=== PATIENT | male | born 1985 | race Caucasian/White ===

== ENCOUNTER 2017-02-21 13:06 | Emergency (ER) | payer OTHER ==
[2017-02-21] MEDS ORDERED: DIAZEPAM INJ 10 MG/2 ML DISP.SYRIN IV ONE (13:27)
[2017-02-21] MEDS ORDERED: HYDROMORPHONE HCL INJ/PF 2 MG/ML AMPULE IV ONE (13:33)
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
[2017-02-21] MEDS ORDERED: PROPOFOL INJ 200 MG/20 ML VIAL IV ONE (14:38)
[2017-02-21] MEDS ORDERED: CLONAZEPAM 1 MG TABLET PO ONE (15:48)
[2017-02-21 16:05] VITALS: BP 124/84
== END 2017-02-21 16:05 | disposition home or self-care (01) ==
LOC: ER 13:06
PROC: 2W39X1Z Immobilization of Left Upper Extremity using Splint (ICD-10-PCS; principal; 2017-02-21)
DX: S43.015A Anterior dislocation of left humerus, initial encounter (principal); R56.9 Unspecified convulsions; M25.512 Pain in left shoulder; X58.XXXA Exposure to other specified factors, initial encounter; F17.210 Nicotine dependence, cigarettes, uncomplicated
CPT/HCPCS: 99284; 96374; 96375; 73020; 73030; 70450; 29105; L3650; J3360; J1170; J2704

== ENCOUNTER 2017-04-24 15:03 | Emergency (ER) | payer OTHER ==
--- NOTE | 2017-04-24 16:24 | ER Document Report ---
ED Psych Disorder / Suicide - General Chief Complaint: Suicidal Ideation Stated Complaint: PSYCH EVAL/SUICIDAL IDEATION Time Seen by Provider: 04/24/17 16:06 Mode of Arrival: Ambulatory Information source: Patient TRAVEL OUTSIDE OF THE [place] IN LAST 30 DAYS: No - HPI Patient complains to provider of: Aggression, Agitated, Homicidal ideation - Related Data Allergies/Adverse Reactions: No Known Allergies Allergy (Verified 04/24/17 15:16) Past Medical History - Social History Family History: Reviewed & Not Pertinent Patient has suicidal ideation: Yes Patient has homicidal ideation: Yes Renal/ Medical History: Denies: Hx Peritoneal Dialysis Physical Exam - Vital signs Vitals: Temp Pulse Resp BP Pulse Ox 97.8 F 92 16 107/64 96 04/24/17 15:16 04/24/17 15:16 04/24/17 15:16 04/24/17 15:16 04/24/17 15:16 Course - Vital Signs Vital signs: Temp Pulse Resp BP Pulse Ox 97.8 F 92 16 107/64 96 04/24/17 15:16 04/24/17 15:16 04/24/17 15:16 04/24/17 15:16 04/24/17 15:16 - Laboratory Result Diagrams: 04/24/17 16:49 04/24/17 16:49 Laboratory results interpreted by me: 04/24/17 04/24/17 16:49 16:49 Hgb 17.8 H Hct 54.2 H MCV 98 H RDW 14.8 H BUN 4 L Salicylates < 1.0 L Acetaminophen < 10 L
[2017-04-24 17:02] LABS: ABSOLUTE BASOPHILS # (AUTO) 0.1 10^3/uL (0.0-0.2); ABSOLUTE EOSINOPHILS # (AUTO) 0.1 10^3/uL (0.0-0.6); ABSOLUTE LYMPHOCYTES (AUTO) 2.1 10^3/uL (0.5-4.7); ABSOLUTE MONOCYTES (AUTO) 0.4 10^3/uL (0.1-1.4); ABSOLUTE NEUT (AUTO) 6.9 10^3/uL (1.7-8.2); BASOPHILS % (AUTO) 0.8 % (0-2); EOSINOPHILS % (AUTO) 1.1 % (0-6); HEMATOCRIT 54.2 % (37.9-51.0); HEMOGLOBIN 17.8 g/dL (13.5-17.0); HGB HCT DIFFERENCE -0.8; LYMPHOCYTES % (AUTO) 22.3 % (13-45); MEAN CORPUSCULAR HGB CONC 32.7 g/dL (32.0-36.0); MEAN CORPUSCULAR VOLUME 98 fl (80-97); MONOCYTES % (AUTO) 4.3 % (3-13); RED BLOOD COUNT 5.54 10^6/uL (4.35-5.55); RED CELL DISTRIBUTION WIDTH 14.8 % (11.5-14.0); SEGMENTED NEUTROPHILS % (AUTO) 71.5 % (42-78); WHITE BLOOD COUNT 9.6 10^3/uL (4.0-10.5)
[2017-04-24 17:06] LABS: APPEARANCE,URINE CLEAR; BILIRUBIN,URINE NEGATIVE (NEGATIVE); GLUCOSE, URINE NEGATIVE (NEGATIVE); KETONES,URINE NEGATIVE (NEGATIVE); LEUKOCYTE ESTERASE,URINE NEGATIVE (NEGATIVE); NITRITE,URINE NEGATIVE (NEGATIVE); PROTEIN,URINE NEGATIVE (NEGATIVE); URINE SPECIFIC GRAVITY 1.002; UROBILINOGEN,URINE NEGATIVE mg/dL (<2.0)
[2017-04-24] MEDS ORDERED: ONDANSETRON HCL INJ/PF 4 MG/2 ML SDV IV ONE (17:17)
[2017-04-24] MEDS ORDERED: KETOROLAC TROMETHAMINE INJ/PF 30 MG/1 ML SDV IV ONE (17:17)
[2017-04-24] MEDS ORDERED: DIPHENHYDRAMINE HCL 50 MG/ML VIAL IV ONE (17:17)
--- NOTE | 2017-04-24 17:17 | ER Document Report ---
ED Psych Disorder / Suicide - General Mode of Arrival: Ambulatory Information source: Patient TRAVEL OUTSIDE OF THE [place].S[place] IN LAST 30 DAYS: No - HPI Patient complains to provider of: Homicidal ideation Associated symptoms: Other - See above <MYRA MEYERS - Last Filed: 04/24/17 17:24> <MAHNAZ DAN - Last Filed: 04/24/17 19:24> - General Chief Complaint: Homicidal Ideation Stated Complaint: PSYCH EVAL/homicidal IDEATION Time Seen by Provider: 04/24/17 16:06 Notes: Patient is a 31 year old male, with a past medical history including PTSD, who presents to the emergency department with [facility] unit for homicidal ideation. Per mobile crisis patient has both suicidal and homicidal ideation. Patient complains of pain everywhere and a constant headache. Patient reports he is waiting for transfer to the [place] for his mental health. (MYRA MEYERS) - Related Data Allergies/Adverse Reactions: No Known Allergies Allergy (Verified 04/24/17 15:16) Past Medical History - General Information source: Patient - Social History Smoking Status: Current Every Day Smoker Chew tobacco use (# tins/day): No Frequency of alcohol use: Heavy Drug Abuse: None Family History: Reviewed & Not Pertinent Patient has suicidal ideation: Yes Patient has homicidal ideation: Yes Neurological Medical History: Reports: Hx Migraine - TBI, Psychiatric Medical History: Reports: Hx Post Traumatic Stress Disorder Traumatic Medical History: Reports: Hx Traumatic Brain Injury <MYRA MEYERS - Last Filed: 04/24/17 17:24> Review of Systems - Review of Systems Constitutional: See HPI, Other - pain everywhere EENT: No symptoms reported Cardiovascular: No symptoms reported Respiratory: No symptoms reported Gastrointestinal: No symptoms reported Genitourinary: No symptoms reported Male Genitourinary: No symptoms reported Musculoskeletal: No symptoms reported Skin: No symptoms reported Hematologic/Lymphatic: No symptoms reported Neurological/Psychological: See HPI, Headaches -: Yes All other systems reviewed and negative <MYRA MEYERS - Last Filed: 04/24/17 17:24> Physical Exam - Vital signs Interpretation: Normal - General General appearance: Appears well, Alert - HEENT Head: Normocephalic, Atraumatic Eyes: Normal, Other - Sunglasses on in room Pupils: PERRL - Respiratory Respiratory status: No respiratory distress Chest status: Nontender Breath sounds: Normal Chest palpation: Normal - Cardiovascular Rhythm: Regular Heart sounds: Normal auscultation Murmur: No - Abdominal Inspection: Normal Distension: No distension Bowel sounds: Normal Tenderness: Nontender Organomegaly: No organomegaly - Back Back: Normal, Nontender - Extremities General upper extremity: Normal inspection, Nontender, Normal color, Normal ROM , Normal temperature General lower extremity: Normal inspection, Nontender, Normal color, Normal ROM , Normal temperature, Normal weight bearing. No: Pierce's sign - Neurological Neuro grossly intact: Yes Cognition: Normal Orientation: AAOx4 Avilla Coma Scale Eye Opening: Spontaneous Ramón Coma Scale Verbal: Oriented Avilla Coma Scale Motor: Obeys Commands Avilla Coma Scale Total: 15 Speech: Normal Motor strength normal: LUE, RUE, LLE, RLE Sensory: Normal - Psychological Associated symptoms: Flat affect - Skin Skin Temperature: Warm Skin Moisture: Dry Skin Color: Normal <MAHNAZ DAN - Last Filed: 04/24/17 19:24> - Vital signs Vitals: Temp Pulse Resp BP Pulse Ox 97.8 F 92 16 107/64 96 04/24/17 15:16 04/24/17 15:16 04/24/17 15:16 04/24/17 15:16 04/24/17 15:16 Course - Laboratory Result Diagrams: 04/24/17 16:49 04/24/17 16:49 <MYRA MEYERS - Last Filed: 04/24/17 17:24> - Laboratory Result Diagrams: 04/24/17 16:49 04/24/17 16:49 <MAHNAZ DAN - Last Filed: 04/24/17 19:24> - Re-evaluation Re-evalutation: 04/24/17 17:22 Patient is a 31-year-old male who comes in complaining of suicidal and homicidal ideation. His body hurts all over, particularly his head. Patient states that he usually takes ibuprofen for headache. States that that has not been working recently. Headache medications will be ordered for this patient. He is also requesting something to eat. 04/24/17 19:22 Patient has a valproic acid level ordered as he is supposed to be taking it for his mental health disorder. Valproic acid level is nonexistent. Patient has had Depakote ordered. Discussed with mental health. He will also be started on Cogentin and Zyprexa. Headache is improved at this time. Patient will be kept on involuntary commitment paperwork and will be reevaluated by mental health in the morning. (MAHNAZ DAN) - Vital Signs Vital signs: Temp Pulse Resp BP Pulse Ox 97.8 F 92 16 107/64 96 04/24/17 15:16 04/24/17 15:16 04/24/17 15:16 04/24/17 15:16 04/24/17 15:16 - Laboratory Laboratory results interpreted by me: 04/24/17 04/24/17 04/24/17 16:49 16:49 16:49 Hgb 17.8 H Hct 54.2 H MCV 98 H RDW 14.8 H BUN 4 L Salicylates < 1.0 L Acetaminophen < 10 L Valproic Acid < 10.0 L Discharge <MYRA MEYERS - Last Filed: 04/24/17 17:24> <MAHNAZ DNA - Last Filed: 04/24/17 19:24> - Discharge Clinical Impression: Suicidal ideation, Homicidal ideation Headache Qualifiers: Headache type: unspecified Headache chronicity pattern: unspecified pattern Intractability: not intractable Qualified Code(s): R51 - Headache Condition: Stable Disposition: PSYCH HOSP/UNIT Scribe Attestation: 04/24/17 19:24 I personally performed the services described in the documentation, reviewed and edited the documentation which was dictated to the scribe in my presence, and it accurately records my words and actions. (MAHNAZ DAN) Scribe Documentation - Scribe Written by Gregorio:: gregorio Aguilar, 04/24/17, 1727 acting as scribe for :: Marleei <MYRA MEYERS - Last Filed: 04/24/17 17:24>
[2017-04-24 17:21] LABS: URINE BARBITURATES SCREEN NEGATIVE; URINE METHADONE SCREEN NEGATIVE; URINE OPIATES LOW NEGATIVE; URINE PHENCYCLIDINE SCREEN NEGATIVE
[2017-04-24 17:24] LABS: ALANINE AMINOTRANSFERASE 27 U/L (21-72); ALBUMIN 4.8 g/dL (3.5-5.0); ALCOHOL 95 mg/dL (NONE DETECTED); ALKALINE PHOSPHATASE 100 U/L (38-126); ANION GAP 15 (5-19); ASPARTATE AMINO TRANSFERASE 17 U/L (17-59); BILIRUBIN,DIRECT 0.3 mg/dL (0.0-0.4); BILIRUBIN,TOTAL 0.6 mg/dL (0.2-1.3); BLOOD UREA NITROGEN 4 mg/dL (7-20); CALCIUM 9.4 mg/dL (8.4-10.2); CARBON DIOXIDE 23 mmol/L (22-30); CHLORIDE 105 mmol/L (98-107); CREATININE RESULT 0.85 mg/dL (0.52-1.25); GLUCOSE 92 mg/dL (75-110); POTASSIUM 4.4 mmol/L (3.6-5.0); SODIUM 142.8 mmol/L (137-145); TOTAL PROTEIN 7.9 g/dL (6.3-8.2)
--- NOTE | 2017-04-24 17:54 | EKG REPORT ---
SEVERITY:- NORMAL ECG - SINUS RHYTHM : Confirmed by: Gabby Meadows 24-Apr-2017 17:53:43
[2017-04-24] MEDS ORDERED: OLANZAPINE 5 MG TAB.RAPDIS PO SCH (18:30)
[2017-04-24] MEDS ORDERED: OLANZAPINE 5 MG TAB.RAPDIS PO PRN (18:30)
[2017-04-24] MEDS ORDERED: KETOROLAC TROMETHAMINE 60 MG/2 ML SDV IM ONE (18:42)
[2017-04-24] MEDS ORDERED: ONDANSETRON 4 MG TAB.RAPDIS SL ONE (18:42)
[2017-04-24] MEDS ORDERED: DIPHENHYDRAMINE HCL 50 MG/ML VIAL IM ONE (18:42)
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
[2017-04-24] MEDS ORDERED: DIVALPROEX SODIUM 500 MG TAB.SR.24H PO SCH (19:00)
[2017-04-24] MEDS: NICOTINE 21 MG/24 HR PATCH.TD24 TD SCH (19:31)
[2017-04-24] MEDS ORDERED: DIVALPROEX SODIUM 500 MG TAB.SR.24H PO ONE ×2 (21:00)
[2017-04-24] MEDS ORDERED: OLANZAPINE 5 MG TAB.RAPDIS PO ONE (21:15)
[2017-04-24] MEDS: DIVALPROEX SODIUM 500 MG TAB.SR.24H PO SCH (21:24)
[2017-04-24] MEDS: BENZTROPINE MESYLATE 1 MG TABLET PO SCH (21:25)
[2017-04-25] MEDS ORDERED: DIPHENHYDRAMINE HCL 50 MG/ML VIAL IM ONE (06:21)
[2017-04-25] MEDS ORDERED: HALOPERIDOL LACTATE INJ 5 MG/1 ML VIAL IM ONE (06:21)
[2017-04-25] MEDS: OLANZAPINE 5 MG TAB.RAPDIS PO SCH ×2 (10:33→18:48)
--- NOTE | 2017-04-25 10:52 | ER Document Report ---
Doctor's Note Notes: 04/25/17 10:51 Patient awake and alert, ambulating in the room after having just brushed his teeth, he is pleasant and cooperative at this point in time states that he came to this emergency room in an effort to see a psychologist in person to have an opportunity to talk about his issues, he does not wish to engage in this conversation with myself or the social science professor here today, chart was otherwise worse reviewed, he does have a mildly elevated AST and ALT, otherwise vital signs and labs are stable, patient will remain in the emergency room until other placement arrangements can be made with the mental health team for appropriate disposition
[2017-04-25] MEDS: DIVALPROEX SODIUM 500 MG TAB.SR.24H PO SCH (18:48)
[2017-04-25] MEDS: BENZTROPINE MESYLATE 1 MG TABLET PO SCH (23:00)
[2017-04-25] MEDS: IBUPROFEN 600 MG TABLET PO PRN (23:04)
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
[2017-04-26] MEDS: OLANZAPINE 5 MG TAB.RAPDIS PO SCH ×2 (09:20→17:11)
[2017-04-26] MEDS: IBUPROFEN 600 MG TABLET PO PRN ×2 (09:20→18:34)
[2017-04-26] MEDS: DIVALPROEX SODIUM 500 MG TAB.SR.24H PO SCH ×2 (09:21→17:11)
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
--- NOTE | 2017-04-26 17:16 | RADIOLOGY REPORT (SQ) ---
EXAM DESCRIPTION: CHEST PA/LAT COMPLETED DATE/TIME: 04/26/2017 4:54 pm REASON FOR STUDY: pain COMPARISON: None. EXAM PARAMETERS: NUMBER OF VIEWS: two views TECHNIQUE: Digital Frontal and Lateral radiographic views of the chest acquired. RADIATION DOSE: NA LIMITATIONS: none FINDINGS: LUNGS AND PLEURA: No opacities, masses or pneumothorax. No pleural effusion. MEDIASTINUM AND HILAR STRUCTURES: No masses or contour abnormalities. HEART AND VASCULAR STRUCTURES: Heart normal size. No evidence for failure. BONES: No acute findings. HARDWARE: None in the chest. OTHER: No other significant finding. IMPRESSION: NO SIGNIFICANT RADIOGRAPHIC FINDING IN THE CHEST. TECHNICAL DOCUMENTATION: JOB ID: [id number] [employer]- All Rights Reserved
--- NOTE | 2017-04-26 17:17 | RADIOLOGY REPORT (SQ) ---
EXAM DESCRIPTION: SHOULDER LEFT 2 OR MORE VIEWS COMPLETED DATE/TIME: 04/26/2017 4:54 pm REASON FOR STUDY: pain COMPARISON: 02/21/2017 NUMBER OF VIEWS: Three views. TECHNIQUE: Internal rotation, external rotation, and Y view images acquired of the left shoulder. LIMITATIONS: None FINDINGS: MINERALIZATION: Normal. BONES: No acute fracture or dislocation. No worrisome bone lesions. JOINTS: No dislocation. VISUALIZED LUNGS AND RIBS: No pneumothorax. No rib fracture. SOFT TISSUES: No radiopaque foreign body. OTHER: No other significant finding. IMPRESSION: NEGATIVE STUDY OF THE LEFT SHOULDER. NO RADIOGRAPHIC EVIDENCE OF ACUTE INJURY. TECHNICAL DOCUMENTATION: JOB ID: [id number] [employer]- All Rights Reserved
[2017-04-26] MEDS: BENZTROPINE MESYLATE 1 MG TABLET PO SCH (21:56)
[2017-04-27] MEDS: IBUPROFEN 600 MG TABLET PO PRN ×2 (04:52→17:43)
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
[2017-04-27] MEDS: OLANZAPINE 5 MG TAB.RAPDIS PO SCH ×2 (09:40→17:43)
[2017-04-27] MEDS: NICOTINE 21 MG/24 HR PATCH.TD24 TD SCH (09:40)
[2017-04-27] MEDS: DIVALPROEX SODIUM 500 MG TAB.SR.24H PO SCH ×2 (09:40→17:43)
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
[2017-04-27] MEDS ORDERED: ZOLPIDEM TARTRATE 5 MG TABLET PO ONE (20:36)
[2017-04-27] MEDS: BENZTROPINE MESYLATE 1 MG TABLET PO SCH (20:45)
[2017-04-28] MEDS ORDERED: DIPHENHYDRAMINE HCL 50 MG CAPSULE PO ONE (05:24)
[2017-04-28] MEDS ORDERED: DIPHENHYDRAMINE HCL 25 MG CAPSULE ONE (05:27)
--- NOTE | 2017-04-28 08:02 | PSYCHOLOGICAL NOTE ---
Psych Note - Psych Note Psych Note: Patient is a 31 year old male in the ED on iVC for HI. Today is a re- evaluation. Patient reported he is ready to go home. He further noted he is moving 05/06/17 and has lots of things to take care of. He also noted he is missing a lot of [facility] appointments ([facility] other [facility]/ programs). He identified he has been in the ED for 4 days where he has been able to think. He denied SI/HI. He stated he does not want to harm anyone. He did say the only way he would is if he had to defend self or family. Today he was less irritable, recognized when he was and apologized for some of his behaviors/reactions, and seemed more open to dialogue conversation where other perspectives were offered not just his. Diagnosis: 309.81 (F43.10) Post Traumatic Stress Disorder TBI Impression/Plan: Recommendation to maintain IVC. Today is the first day seeing a change in patient's overall presentation/demeanor, thinking, recognition of own reactions, and being open minded to other perspectives/view points. Also placement efforts had been halted over weekend given patient is [facility] and there had been no bed availability. His packet was sent out today. If no response from [facility] by end of day will contact them first thing in the morning. Consulted with Dr. Vickers regarding the management and care of patient. ED Doctor in agreement with recommendations.
[2017-04-28] MEDS: OLANZAPINE 5 MG TAB.RAPDIS PO SCH (10:07)
[2017-04-28] MEDS: DIVALPROEX SODIUM 500 MG TAB.SR.24H PO SCH (10:07)
[2017-04-28] MEDS: NICOTINE 21 MG/24 HR PATCH.TD24 TD SCH (10:08)
--- NOTE | 2017-04-28 10:34 | ER Document Report ---
Doctor's Note Notes: 04/28/17 10:34 The patient is sitting up reading a Bible this morning he will be reevaluated this morning, currently paperwork is in to the [facility] system for [facility]. 04/28/17 12:21 Plan is to discharge patient to [facility] and prescribed Deisy Bar and Zngarexa.
[2017-04-28 12:39] VITALS: BP 130/73
== END 2017-04-28 12:56 | disposition home or self-care (01) ==
LOC: ER 15:03
DX: R45.850 Homicidal ideations (principal); R45.851 Suicidal ideations; R51 Headache; F17.200 Nicotine dependence, unspecified, uncomplicated; F43.10 Post-traumatic stress disorder, unspecified; Z87.820 Personal history of traumatic brain injury
CPT/HCPCS: 93005; 99285; 96372; 36415; 80307 ×4; 85025; 80053; 81001; 80164; 93010; J3490 ×4; J1200 ×2; J1885; S0119; J1630; 71020

== ENCOUNTER 2018-07-31 20:25 | Emergency (ER) | payer OTHER ==
[2018-07-31] MEDS ORDERED: MORPHINE SULFATE 10 MG/ML INJ IM ONE (20:38)
--- NOTE | 2018-07-31 20:40 | ER Document Report ---
ED Medical Screen (RME) - General Chief Complaint: Shoulder Injury Stated Complaint: POSSIBLE SHOULDER DISLOCATION Time Seen by Provider: 07/31/18 20:37 Mode of Arrival: Ambulatory Information source: Patient Notes: Patient presents with chief complaint of pain to left shoulder. Patient reports he was lifting a heavy gas can when he felt a pop. Patient reports history of dislocations to the shoulder, denies ever having any surgery to the shoulder. Exam: Obvious deformity to left shoulder. I have greeted and performed a rapid initial assessment of this patient. A comprehensive ED assessment and evaluation of the patient, analysis of test results and completion of the medical decision making process will be conducted by additional ED providers. Dictation of this chart was performed using voice recognition software; therefore, there may be some unintended grammatical errors. TRAVEL OUTSIDE OF THE [place] IN LAST 30 DAYS: No - Related Data Allergies/Adverse Reactions: No Known Allergies Allergy (Verified 07/31/18 20:37) Past Medical History - Social History Frequency of alcohol use: Social Drug Abuse: None Neurological Medical History: Reports: Hx Migraine - TBI, Hx Seizures Renal/ Medical History: Denies: Hx Peritoneal Dialysis Psychiatric Medical History: Reports: Hx Post Traumatic Stress Disorder Traumatic Medical History: Reports: Hx Traumatic Brain Injury Physical Exam - Vital signs Vitals: Temp Pulse Resp BP Pulse Ox 97.7 F 85 16 130/82 H 99 07/31/18 20:32 07/31/18 20:32 07/31/18 20:32 07/31/18 20:32 07/31/18 20:32 Course - Vital Signs Vital signs: Temp Pulse Resp BP Pulse Ox 97.7 F 85 16 130/82 H 99 07/31/18 20:32 07/31/18 20:32 07/31/18 20:32 07/31/18 20:32 07/31/18 20:32
--- NOTE | 2018-07-31 20:57 | RADIOLOGY REPORT (SQ) ---
EXAM DESCRIPTION: SHOULDER LEFT 2 OR MORE VIEWS COMPLETED DATE/TIME: 07/31/2018 8:48 pm REASON FOR STUDY: shoulder injury COMPARISON: 04/26/2017. NUMBER OF VIEWS: Three views. TECHNIQUE: Internal rotation, external rotation, and Y view images acquired of the left shoulder. LIMITATIONS: None. FINDINGS: MINERALIZATION: Normal. BONES: Anterior dislocation of the humeral head. No fracture JOINTS: No dislocation. VISUALIZED LUNGS AND RIBS: No pneumothorax. No rib fracture. SOFT TISSUES: No radiopaque foreign body. OTHER: No other significant finding. IMPRESSION: ANTERIOR DISLOCATION OF THE HUMERAL HEAD. NO FRACTURE. TECHNICAL DOCUMENTATION: JOB ID: [id number] [employer] All Rights Reserved Reading location - IP/workstation name: [email or web address]
[2018-07-31] MEDS ORDERED: ONDANSETRON HCL INJ/PF 4 MG/2 ML SDV IV ONE (21:34)
[2018-07-31] MEDS ORDERED: PROPOFOL INJ 200 MG/20 ML VIAL IV ONE (21:34)
[2018-07-31] MEDS ORDERED: NORMAL SALINE 1000 ML 1,000 ML IV ONE (21:35)
--- NOTE | 2018-07-31 21:35 | ER Document Report ---
ED General - General Chief Complaint: Shoulder Injury Stated Complaint: POSSIBLE SHOULDER DISLOCATION Time Seen by Provider: 07/31/18 20:37 Mode of Arrival: Ambulatory Information source: Patient Notes: This is a 32-year-old man with a history of seizures, TBI and left shoulder dislocation who presents to the emergency room after dislocation of the left shoulder. He last ate at 2:30 PM. Patient does complain of numbness and tingling in the fingers. Complains of numbness over the dorsal aspect of the deltoid. Locations: Depak[facility] Medical history: Seizures Known drug allergies TRAVEL OUTSIDE OF THE [place] IN LAST 30 DAYS: No - HPI Onset: Just prior to arrival Onset/Duration: Sudden Quality of pain: Dull Severity: Moderate Pain Level: 4 Associated symptoms: denies: Chest pain, Shortness of breath Exacerbated by: Movement Relieved by: Denies Similar symptoms previously: Yes Recently seen / treated by doctor: No - Related Data Allergies/Adverse Reactions: No Known Allergies Allergy (Verified 07/31/18 20:37) Past Medical History - General Information source: Patient - Social History Smoking Status: Current Every Day Smoker Cigarette use (# per day): Yes - 1 pack per day Chew tobacco use (# tins/day): No Frequency of alcohol use: Social Drug Abuse: None Lives with: Family Family History: Reviewed & Not Pertinent Patient has suicidal ideation: No Patient has homicidal ideation: No - Past Medical History Cardiac Medical History: Reports: None Neurological Medical History: Reports: Hx Migraine - TBI, Hx Seizures Renal/ Medical History: Denies: Hx Peritoneal Dialysis Psychiatric Medical History: Reports: Hx Post Traumatic Stress Disorder Traumatic Medical History: Reports: Hx Traumatic Brain Injury Surgical Hx: Negative Review of Systems - Review of Systems Constitutional: denies: Chills, Fever EENT: No symptoms reported Cardiovascular: No symptoms reported Respiratory: No symptoms reported Gastrointestinal: No symptoms reported Genitourinary: No symptoms reported Male Genitourinary: No symptoms reported Musculoskeletal: See HPI Skin: No symptoms reported Hematologic/Lymphatic: No symptoms reported Neurological/Psychological: No symptoms reported Physical Exam - Vital signs Vitals: Temp Pulse Resp BP Pulse Ox 97.7 F 85 16 130/82 H 99 07/31/18 20:32 07/31/18 20:32 07/31/18 20:32 07/31/18 20:32 07/31/18 20:32 Notes: Physical exam: GENERAL: 32-year-old man, alert and oriented 3, obvious distress from left shoulder. HEAD: Atraumatic, normocephalic. EYES: Pupils equal round and reactive to light, extraocular movements intact, sclera anicteric, conjunctiva are normal. ENT: TMs normal, nares patent, oropharynx clear without exudates. Moist mucous membranes. NECK: Normal range of motion, supple without obvious mass or JVD. LUNGS: Breath sounds clear to auscultation bilaterally and equal. No wheezes rales or rhonchi. HEART: Regular rate and rhythm without murmurs, rubs or gallops. ABDOMEN: Soft, normoactive bowel sounds. No tenderness to palpation. No guarding, no rebound. No masses appreciated. EXTREMITIES: Left shoulder deformity. Patient has decreased sensation over the deltoid. He has a difficult time extending the wrist against resistance due to pain. He does complain of numbness to the first dorsal webspace of the hand. He has a difficult time pinching paper with his thumb and index finger. Distal pulses 2+. Distal cap refill is good. NEUROLOGICAL: Cranial nerves II through XII grossly intact. Normal speech, moving all extremities. PSYCH: Normal mood, normal affect. SKIN: Warm, Dry, normal turgor, no rashes or lesions noted. Course - Vital Signs Vital signs: Temp Pulse Resp BP Pulse Ox 97.7 F 85 18 121/86 H 97 07/31/18 20:32 07/31/18 20:32 07/31/18 22:45 07/31/18 22:45 07/31/18 22:45 - Diagnostic Test Radiology reviewed: Image reviewed, Reports reviewed Procedures - Conscious Sedation Conscious sedation Time started: 22:15 Time completed: :40 Consent obtained: Yes Indication: Shoulder dislocation Last meal: 14:30 Prior complications: Procedural sedation Normal healthy pt.: P1. - ASA Classification Airway Evaluation: Normal anatomy Mallampati Classification: Class 2 Used during procedure: Suction available, IV access obtained, Pulse ox on pt., sales clerk food on pt. Medications administered: Diprivan Reversal agents: None I personally performed/intraservice time: Sedation, Procedure, 30 min or less Complications: No - Joint Reduction/Fracture Care Left Shoulder Time completed: :40 Consent obtained: Yes Conscious sedation: Yes Pre-procedure NV exam: No - Patient has possible brachial plexus injury prior to procedure Manipulation comment: Patient had gentle traction countertraction with subtle manipulation of the Post-procedure NV exam: Yes - Patient still has numbness in the dorsal first webspace Post-reduction x-ray: Joint reduced Reduction attempts: 1 Complications: No Notes: 07/31/18 22:59 The joint relocated fairly easily. Patient was having a lot of pain before the procedure along with numbness down the hand. He was having a lot of pain after. Thus, I injected the joint with 20 cc of lidocaine. Discharge - Discharge Clinical Impression: Left shoulder dislocation Condition: Stable Disposition: HOME, SELF-CARE Additional Instructions: Continue ibuprofen 400 mg(Advil) every 6 hours for the next few days. Ice to the shoulder several times a day for the next 2 days Take the percocet for pain unrelieved by the Ibuprofen Keep the shoulder in the sling until the pain resides. Start beginning range of motion exercises after 1 week. As we discussed, I suspect he may have injured the nerve going down the arm and it is important that you follow-up with the orthopedic surgeon: I want you to call on Thursday for the next available appointment. Return to the emergency room for worsening pain, fever, worsening numbness or concerns or getting worse. The pain medicine you're taking prescribed as a narcotic. There are several important things you should know about this medicine: 1. This medicine contains Tylenol: It is important that you do not take Tylenol (or acetaminophen) while on this medicine. Tylenol is metabolized by the liver and taking too much Tylenol (acetaminophen) can lay to liver damage and even liver failure. 2. Taking narcotics for too long can lead to physical and mental dependence. Take this medicine only if really needed and in the lowest quantity to achieve pain relief. 3. Do not drink alcohol while on this medicine. Alcohol interacts with narcotics and the combination can be dangerous. 4. Do not drive or operate machinery while on this medicine. 5. Narcotics do cause constipation, so drink plenty of fluids and daily stool softeners. Prescriptions: Oxycodone HCl/Acetaminophen [Percocet 5-325 mg Tablet] 1 - 2 tab PO ASDIR PRN # 25 tablet PRN Reason: Referrals: SHAYE AVERY MD [Primary Care Provider] - Follow up as needed ADAN MAR MD [ACTIVE STAFF] - Follow up in 1 week (This is the number the orthopedic surgeon: Call Thursday for an appointment within the next week.)
[2018-07-31] MEDS ORDERED: LIDOCAINE 1% INJ-PF (10 MG/ML) 30 ML SDV ONE (22:37)
[2018-07-31] MEDS ORDERED: LIDOCAINE 1% INJ-PF (10 MG/ML) 30 ML SDV INJ ONE (22:37)
--- NOTE | 2018-07-31 23:04 | RADIOLOGY REPORT (SQ) ---
EXAM DESCRIPTION: Left shoulder x-ray one view, July 31, 2018 at 10:35 PM CLINICAL HISTORY: s/p relocation COMPARISON: Same day earlier time FINDINGS: Post reduction single image of the left shoulder demonstrates no acute fracture or dislocation. IMPRESSION: Post reduction single image of the left shoulder demonstrates no acute fracture or dislocation.
[2018-07-31] MEDS ORDERED: KETOROLAC TROMETHAMINE INJ/PF 30 MG/1 ML SDV IV ONE (23:33)
[2018-07-31] MEDS ORDERED: HYDROCODONE/ACETAMINOPHEN 5-325 MG (6 TAB/ER DISP) PO PRN (23:33)
--- NOTE | 2018-07-31 23:42 | RADIOLOGY REPORT (SQ) ---
EXAM DESCRIPTION: XR SHOULDER 1 VIEW COMPLETED DATE/TME: 07/31/2018 23:09 CLINICAL HISTORY: 32 years, Male, left shoulder pain COMPARISON: None. EXAM DESCRIPTION: CLINICAL HISTORY: left shoulder pain COMPARISON: None FINDINGS: One view(s) submitted. No fracture or dislocation is identified. Bone marrow attenuation is unremarkable. No radiopaque foreign body is identified. IMPRESSION: No acute fracture or dislocation.
[2018-08-01 00:13] VITALS: BP 120/77
== END 2018-08-01 00:15 | disposition home or self-care (01) ==
LOC: ER 20:25
PROC: 0RSKXZZ Reposition Left Shoulder Joint, External Approach (ICD-10-PCS; principal; 2018-07-31)
DX: S43.005A Unspecified dislocation of left shoulder joint, initial encounter (principal); F17.210 Nicotine dependence, cigarettes, uncomplicated; X58.XXXA Exposure to other specified factors, initial encounter
CPT/HCPCS: 99283; 96372; 96361; 99153; 99152; 96374; 96375; 73020; 73030; 23650; L3650; J3490; J1885; J2270; J2405; J2704

== ENCOUNTER 2018-08-06 16:26 | Emergency (ER) | payer OTHER ==
--- NOTE | 2018-08-06 18:29 | RADIOLOGY REPORT (SQ) ---
EXAM DESCRIPTION: SHOULDER LEFT 2 OR MORE VIEWS COMPLETED DATE/TIME: 08/06/2018 6:19 pm REASON FOR STUDY: hx of dislocation and increased pain COMPARISON: 07/31/2018 NUMBER OF VIEWS: Three views. TECHNIQUE: Internal rotation, external rotation, and Y view images acquired of the left shoulder. LIMITATIONS: None. FINDINGS: MINERALIZATION: Normal. BONES: A Hill-Sachs compression deformity is present in this patient with recent anterior, inferior d islocation. Osseous mineralization and alignment are otherwise normal. JOINTS: No dislocation. VISUALIZED LUNGS AND RIBS: No pneumothorax. No rib fracture. SOFT TISSUES: No radiopaque foreign body. OTHER: No other significant finding. IMPRESSION: Hill-Sachs compression deformity consistent with history of recent dislocation. No acut e finding. TECHNICAL DOCUMENTATION: JOB ID: [id number] [employer]- All Rights Reserved Reading location - IP/workstation name: [email or web address]
--- NOTE | 2018-08-06 19:49 | ER Document Report ---
ED Extremity Problem, Upper - General Chief Complaint: Shoulder Injury Stated Complaint: LEFT SHOULDER INJURY Time Seen by Provider: 08/06/18 17:55 Mode of Arrival: Ambulatory Information source: Patient Notes: Patient is a 32-year-old male comes emergency room complaining of left shoulder pain. Patient was seen here on 922 for dislocation of the left shoulder. It was subsequently reduced and patient continued with pain. He was placed on pain medications and sling and told to come back if there is any problems. Patient states that over the course the past couple days the pain is gotten worse. States that his arm is swollen more and that he is having difficulty gripping things. Complains about numbness and tingling going to the distal tips of his fingertips on the left hand. States that the pain seems to be from the shoulder down the arm to the fingers. He feels like he has lost sensation. He also states that it is not a whole lot different than it was on the night of the dislocation that is nearly the same as when he left. Eyes any new trauma. TRAVEL OUTSIDE OF THE [place] IN LAST 30 DAYS: No - HPI Patient complains to provider of: Altered sensation, Injury, Pain, Swelling, Left, Arm, Elbow, Forearm, Hand, Wrist, Shoulder Onset: Other - 7 days ago. Recent injury: Yes Where: Home Quality of pain: Achy, Dull, Fullness, Pressure, Sharp, Throbbing Severity of pain: Severe, Constant, Persistent, Still present Pain Level: 4 Arm and Shoulder (Left): 1 - First area is dislocation. It was documented on the x-ray as having a Hill -Sachs deformity. 2 - Rest of the arms increased in swelling and tenderness elbow down mild amount of swelling. Patient has good pulses on the ulnar radius. Good cap refill in the nailbeds of the fingers. Exacerbated by: Movement, Exertion Relieved by: Nothing Similar symptoms previously: Yes Recently seen / treated by doctor: Yes - Related Data Allergies/Adverse Reactions: No Known Allergies Allergy (Verified 07/31/18 20:37) Past Medical History - General Information source: Patient - Social History Smoking Status: Former Smoker Cigarette use (# per day): No Chew tobacco use (# tins/day): No Smoking Education Provided: No Frequency of alcohol use: None Drug Abuse: None Family History: Reviewed & Not Pertinent Patient has suicidal ideation: No Patient has homicidal ideation: No Neurological Medical History: Reports: Hx Migraine - TBI,, Hx Seizures Renal/ Medical History: Denies: Hx Peritoneal Dialysis Psychiatric Medical History: Reports: Hx Post Traumatic Stress Disorder Traumatic Medical History: Reports: Hx Traumatic Brain Injury Review of Systems - Review of Systems Constitutional: No symptoms reported EENT: No symptoms reported Cardiovascular: No symptoms reported Respiratory: No symptoms reported Gastrointestinal: No symptoms reported Genitourinary: No symptoms reported Male Genitourinary: No symptoms reported Musculoskeletal: Joint pain, Joint swelling, Muscle pain Skin: No symptoms reported Hematologic/Lymphatic: No symptoms reported Neurological/Psychological: No symptoms reported -: Yes All other systems reviewed and negative Physical Exam - Vital signs Vitals: Temp Pulse Resp BP Pulse Ox 97.5 F 80 16 134/84 H 97 08/06/18 17:02 08/06/18 17:02 08/06/18 17:02 08/06/18 17:02 08/06/18 17:02 Interpretation: Hypertensive - Notes Notes: Well-nourished well-developed 32-year-old male appears uncomfortable in mild amount of pain. - HEENT Head: Normocephalic, Atraumatic Eyes: Normal - Respiratory Respiratory status: No respiratory distress Chest status: Nontender, No pleuritic chest pain Breath sounds: Normal. No: Rales, Rhonchi, Stridor, Wheezing Chest palpation: Normal - Cardiovascular Rhythm: Regular Heart sounds: Normal auscultation Murmur: No - Extremities General upper extremity: Tender, Normal color, Normal temperature. No: Normal ROM, Normal strength General lower extremity: Normal inspection, Nontender, Normal ROM, Normal strength Shoulder: Tender, Deformity, Limited ROM, Other - Examination patient's left shoulder shows moderate amount of tenderness to palpation on the anterior portion of the shoulder. It starts approximately the distal clavicle and is more prominent along the AC joint space. Skin color when compared to the right looks the same. Skin temperature compared right to left appears the same. Diameter of the arms the left arm from the mid arm down to the forearm and hand does appear to be slightly larger or swollen. Patient displays a good brachial pulse and good distal cap refill in the nailbeds of the fingers. He has decreased endoscopy rn strength but does have flexion-extension of the fingers. Has good distal pulses as well. Patient holds his arm into his body with his hand in the sling. When an attempt to straighten the arm passively patient still says it is too painful to do. Attempt to lift the arm straight forward patient rejected because of the discomfort and pain. Physical exam is difficult wondering if cooperation is a problem. Difficult to assess possible cause of the problem with cooperation.. No: Ecchymosis, Instability, Laceration - Neurological Neuro grossly intact: Yes Cognition: Normal Orientation: AAOx4 Gobler Coma Scale Eye Opening: Spontaneous Ramón Coma Scale Verbal: Oriented Ramón Coma Scale Motor: Obeys Commands Ramón Coma Scale Total: 15 - Skin Skin Temperature: Warm Skin Moisture: Dry Skin Color: Normal, Terril Course - Re-evaluation Re-evalutation: 08/06/18 21:23 Early on my exam felt patient was not cooperating with me in my physical. However after the x-ray showed Hill-Sachs deformity then I feel more compelled to do a little bit better physical examination. Patient does not have any anterior shoulder discomfort or pain. Again all the pain and discomfort seems to be the lateral side from the clavicle to the AC joint space. There is a deformity right at the edge of the clavicle. But x-ray did not say about it. Patient given that he has recently had a documented dislocation that was fairly traumatic inclined to go along with medicated him appropriately. I do not believe he has had any vascular compromise. I do not believe he has any neurovascular compromise. It was all approximately the same as it was on the original day. I am going to go ahead and add the gabapentin for nerve type pain and I will refill some of his Percocet. Patient has an appointment with orthopedics at the [facility] on August 11. I have informed to return to ER if he has any concerns or problems. - Vital Signs Vital signs: Temp Pulse Resp BP Pulse Ox 97.8 F 77 16 131/87 H 95 08/06/18 20:00 08/06/18 20:00 08/06/18 17:02 08/06/18 20:00 08/06/18 20:00 Discharge - Discharge Clinical Impression: Shoulder pain Qualifiers: Chronicity: acute Laterality: left Qualified Code(s): M25.512 - Pain in left shoulder Condition: Stable Disposition: HOME, SELF-CARE Instructions: Oral Narcotic Medication ([facility]), Shoulder Dislocation ([facility]), Sling as Treatment ([facility]) Additional Instructions: Home and rest. Use the sling continuously as already prescribed. Ice to the area 3 times a day. Important to keep your appointment with the orthopedist on the third. I am going to try also a medication used for nerve damage and neuropathies. Give that a try as well. Return to ER if you have any concerns or problems. Prescriptions: Gabapentin 800 mg PO HSP PRN #20 capsule PRN Reason: Oxycodone HCl/Acetaminophen [Percocet 5-325 mg Tablet] 1 - 2 tab PO Q4H PRN #20 tablet PRN Reason: Referrals: SHAYE AVERY MD [Primary Care Provider] - Follow up as needed
[2018-08-06 20:01] VITALS: BP 131/87
== END 2018-08-06 20:01 | disposition home or self-care (01) ==
LOC: ER 16:26
DX: M25.512 Pain in left shoulder (principal)
CPT/HCPCS: 99283

== ENCOUNTER 2019-05-25 11:57 | Emergency (ER) | payer OTHER ==
--- NOTE | 2019-05-25 12:57 | ER Document Report ---
HPI - HPI Time Seen by Provider: 05/25/19 12:34 Pain Level: Denies Notes: 33-year-old male presents to the ED for evaluation after complaining of hemoptysis that started this morning, reports he coughed a couple times and noted red-tinged sputum. Patient states that he was exposed to TB approximately a year ago, never had it followed up or took any medication for it. Denies being on any blood thinners, denies any clotting disorders. Patient is not taking any recent anti-steroidals, denies any other medications. Patient denies any recent URI. Patient is smoker a pack a day for approximately the last 10 to 12 years. Eating and drinking without issues. Denies fevers, chills, chest pain,palpitations, shortness of breath, dyspnea, nausea, vomiting, diarrhea, abdominal pain, hematuria,blurred vision, double vision, loss of vision, speech changes, LH, dizziness, syncope, headaches, wheezing, ST, URI, neck pain, weakness, bowel or bladder dysfunction, saddle anesthesia, numbness or tingling in bilateral upper or lower extremities equally, muscle paralysis, weakness in bilateral upper or lower extremities equally or rash. Past Medical History - General Information source: Patient - Social History Smoking Status: Current Every Day Smoker Family History: Reviewed & Not Pertinent Neurological Medical History: Reports: Hx Migraine - TBI,, Hx Seizures Renal/ Medical History: Denies: Hx Peritoneal Dialysis Psychiatric Medical History: Reports: Hx Post Traumatic Stress Disorder Traumatic Medical History: Reports: Hx Traumatic Brain Injury Vertical Provider Document - CONSTITUTIONAL Agree With Documented VS: Yes Notes: PHYSICAL EXAMINATION: GENERAL: Well-appearing, well-nourished and in no acute distress. HEAD: Atraumatic, normocephalic. EYES: Pupils equal round and reactive to light, extraocular movements intact, sc ella anicteric, conjunctiva are normal. ENT: Nares patent, oropharynx clear without exudates. Moist mucous membranes. NECK: Normal range of motion, supple without lymphadenopathy LUNGS: Breath sounds clear to auscultation bilaterally and equal. No wheezes rales or rhonchi. HEART: Regular rate and rhythm without murmurs ABDOMEN: Soft, nontender, nondistended abdomen. No guarding, no rebound. No masses appreciated. Musculoskeletal: Normal range of motion, no pitting or edema. No cyanosis. NEUROLOGICAL: Cranial nerves grossly intact. Normal speech, normal gait. Normal sensory, motor exams PSYCH: Normal mood, normal affect. SKIN: Warm, Dry, normal turgor, no rashes or lesions noted. - INFECTION CONTROL TRAVEL OUTSIDE OF THE [place] IN LAST 30 DAYS: No Course - Re-evaluation Re-evalutation: 05/25/19 13:53 33-year-old male afebrile vitals stable no distress, nursing notes reviewed. CBC negative for leukocytosis or anemia, CMP negative for hepatic or renal dysfunction, coagulation studies were normal, chest x-ray negative per radiology. Vitals are within normal limits at triage and at time of discharge. discussed with patient that his chest x-ray was completely normal, referral given for skin washer if needed his symptoms are getting worse and/or for re evaluation Physical examination is unremarkable. Patient has tolerated oral intake without difficulty. Patient was not noted to be in distress at any point during their ER visit. At this time, based on the reassuring evaluation and After performing a Medical Screening Examination, I estimate there is LOW risk for ACUTE CORONARY SYNDROME, PULMONARY EMBOLI, RESPIRATORY FAILURE, SEPSIS OR MENINGITIS, thus I consider the discharge disposition reasonable. I have reevaluated this patient multiple times and no significant life threatening changes are noted. The patient and I have discussed the diagnosis and risks, and we agree with discharging home with close follow-up. We also discussed returning to the Emergency Department immediately if new or worsening symptoms occur. We have discussed the symptoms which are most concerning (e.g., changing or worsening pain, trouble swallowing or breathing, neck stiffness, fever) that necessitate immediate return. As well as primary care provider verbal discharge instructions given a the bedside and opportunity for questions given. Medication warnings reviewed. Patient is in agreement with this plan and has verbalized understanding of return precautions and the need for primary care follow-up in the next 24-72 hours. - Laboratory Result Diagrams: 05/25/19 13:05 05/25/19 13:05 Discharge - Discharge Clinical Impression: Hemoptysis, Cough Condition: Stable Disposition: HOME, SELF-CARE Instructions: Hemoptysis ([facility]) Additional Instructions: Hemoptysis Hemoptysis (coughing up blood) can occur with many different diseases. Most commonly, it's due to an infection such as bronchitis. Although alarming, the presence of blood in the phlegm doesn't change the treatment of bronchitis or pneumonia. The physician has evaluated you to see if there is evidence of an underlying problem requiring further evaluation. If he has recommended further tests, you should follow up as instructed. Hemoptysis without an identifiable cause can be due to tumors or hidden infections. Return for a recheck if the blood increases greatly in amount, or if you develop shortness of breath, high fever, severe chest pain, or other alarming n ew symptoms. Your chest x-ray was negative for any acute findings, all of your blood work including your coagulation studies were within a normal range. Please follow-up with the primary care provider and skin washer, referrals given.Return if you develop worsening cough, vomiting, fever >100.4, pass out, begin coughing blood, or have any other symptoms that are concerning to you. Please use the medications prescribed today as directed. Return immediately for any new or worsening symptoms. Follow up with primary care provider, call tomorrow to make followup appointment. Referrals: SHAYE AVERY MD [Primary Care Provider] - Follow up tomorrow KIMMY CHARLES MD [ACTIVE STAFF] - Follow up in 3-5 days ART GOLDMAN MD [ACTIVE STAFF] - Follow up in 3-5 days
[2019-05-25 13:14] VITALS: BP 117/77
[2019-05-25 13:27] LABS: ABSOLUTE EOSINOPHILS # (AUTO) 0.1 10^3/uL (0.0-0.6); ABSOLUTE LYMPHOCYTES (AUTO) 1.4 10^3/uL (0.5-4.7); ABSOLUTE MONOCYTES (AUTO) 0.7 10^3/uL (0.1-1.4); ABSOLUTE NEUT (AUTO) 7.4 10^3/uL (1.7-8.2); BASOPHILS % (AUTO) 0.4 % (0-2); EOSINOPHILS % (AUTO) 0.9 % (0-6); HEMATOCRIT 52.4 % (37.9-51.0); HEMOGLOBIN 17.9 g/dL (13.5-17.0); LYMPHOCYTES % (AUTO) 14.1 % (13-45); MEAN CORPUSCULAR HEMOGLOBIN 34.1 pg (27.0-33.4); MEAN CORPUSCULAR HGB CONC 34.1 g/dL (32.0-36.0); MEAN CORPUSCULAR VOLUME 100 fl (80-97); MONOCYTES % (AUTO) 7.1 % (3-13); PLATELET COUNT 221 10^3/uL (150-450); RED BLOOD COUNT 5.24 10^6/uL (4.35-5.55); RED CELL DISTRIBUTION WIDTH 14.8 % (11.5-14.0); SEGMENTED NEUTROPHILS % (AUTO) 77.5 % (42-78); TOTAL CELLS COUNTED % (AUTO) 100 %; WHITE BLOOD COUNT 9.6 10^3/uL (4.0-10.5)
--- NOTE | 2019-05-25 13:32 | RADIOLOGY REPORT (SQ) ---
EXAM DESCRIPTION: CHEST 2 VIEWS COMPLETED DATE/TIME: 05/25/2019 1:23 pm REASON FOR STUDY: Hemoptysis,states exposed to TB years ago COMPARISON: None. TECHNIQUE: Frontal and lateral radiographic views of the chest acquired. NUMBER OF VIEWS: Two view. LIMITATIONS: None. FINDINGS: LUNGS AND PLEURA: No opacities, masses or pneumothorax. No pleural effusion. MEDIASTINUM AND HILAR STRUCTURES: No masses or contour abnormalities. HEART AND VASCULAR STRUCTURES: Heart normal size. No evidence for failure. BONES: No acute findings. HARDWARE: None in the chest. OTHER: No other significant finding. IMPRESSION: NO SIGNIFICANT RADIOGRAPHIC FINDING IN THE CHEST. TECHNICAL DOCUMENTATION: JOB ID: [id number] [facility]- All Rights Reserved Reading location - IP/workstation name: [email or web address]
[2019-05-25 13:34] LABS: PROTHROMBIN TIME 13.2 SEC (11.4-15.4)
[2019-05-25 13:35] LABS: PARTIAL THROMBOPLASTIN TIME 30.4 SEC (23.5-35.8)
[2019-05-25 13:49] LABS: ALANINE AMINOTRANSFERASE 36 U/L (21-72); ALBUMIN 4.4 g/dL (3.5-5.0); ALKALINE PHOSPHATASE 145 U/L (38-126); ANION GAP 11 (5-19); ASPARTATE AMINO TRANSFERASE 21 U/L (17-59); BILIRUBIN,DIRECT 0.2 mg/dL (0.0-0.4); BILIRUBIN,TOTAL 1.1 mg/dL (0.2-1.3); BLOOD UREA NITROGEN 8 mg/dL (7-20); CALCIUM 9.3 mg/dL (8.4-10.2); CARBON DIOXIDE 27 mmol/L (22-30); CHLORIDE 102 mmol/L (98-107); GLUCOSE 102 mg/dL (75-110); POTASSIUM 4.3 mmol/L (3.6-5.0); SODIUM 139.5 mmol/L (137-145); TOTAL PROTEIN 7.6 g/dL (6.3-8.2)
== END 2019-05-25 14:20 | disposition home or self-care (01) ==
LOC: ER 11:57
DX: R04.2 Hemoptysis (principal); F17.210 Nicotine dependence, cigarettes, uncomplicated; Z87.820 Personal history of traumatic brain injury
CPT/HCPCS: 36415; 71046; 80053; 85025; 85610; 85730; 99283

== ENCOUNTER 2019-05-26 00:19 | Emergency (ER) | payer OTHER ==
[2019-05-26 00:48] VITALS: BP 107/61
[2019-05-26] MEDS ORDERED: ONDANSETRON 4 MG TAB.RAPDIS PO ONE (01:57)
[2019-05-26] MEDS ORDERED: KETOROLAC TROMETHAMINE INJ/PF 30 MG/1 ML SDV IM ONE (01:57)
--- NOTE | 2019-05-26 02:00 | ER Document Report ---
ED Medical Screen (RME) - General Chief Complaint: Flank Pain Stated Complaint: TROUBLE BREATHING Time Seen by Provider: 05/26/19 01:56 Primary Care Provider: SHAYE AVERY MD [Primary Care Provider] - Follow up as needed Notes: Patient is a 33-year-old male presents to the emergency department with a chief complaint of right flank pain. Patient states this was an acute onset about 1 hour prior to arriving to the emergency department. Patient states it is worse to take a deep breath and to move. Patient states he is unable to find a position of comfort. Patient denies fever. Patient denies nausea vomiting or diarrhea. Patient denies a history of kidney stones. Patient states he is urinating without difficulty. Patient denies injury or fall. TRAVEL OUTSIDE OF THE [place] IN LAST 30 DAYS: No - Related Data Allergies/Adverse Reactions: No Known Allergies Allergy (Verified 05/25/19 11:58) Past Medical History Neurological Medical History: Reports: Hx Migraine - TBI,, Hx Seizures Renal/ Medical History: Denies: Hx Peritoneal Dialysis Psychiatric Medical History: Reports: Hx Post Traumatic Stress Disorder Traumatic Medical History: Reports: Hx Traumatic Brain Injury Past Surgical History: Reports: Hx Orthopedic Surgery - left shoulder Physical Exam - Vital signs Vitals: Temp Pulse Resp BP Pulse Ox 98.8 F 103 H 18 107/61 96 05/26/19 00:46 05/26/19 00:46 05/26/19 00:46 05/26/19 00:46 05/26/19 00:46 - Back Back: Normal, CVA tenderness - right CVA tenderness Course - Re-evaluation Re-evalutation: 05/26/19 01:59 I have greeted and performed a rapid initial assessment of this patient. A comprehensive ED assessment and evaluation of the patient, analysis of test results and completion of the medical decision making process will be conducted by additional ED providers. - Vital Signs Vital signs: Temp Pulse Resp BP Pulse Ox 98.8 F 103 H 18 107/61 96 05/26/19 00:46 05/26/19 00:46 05/26/19 00:46 05/26/19 00:46 05/26/19 00:46 Doctor's Discharge - Discharge Referrals: SHAYE AVERY MD [Primary Care Provider] - Follow up as needed
[2019-05-26 02:42] LABS: ABSOLUTE BASOPHILS # (AUTO) 0.1 10^3/uL (0.0-0.2); ABSOLUTE EOSINOPHILS # (AUTO) 0.1 10^3/uL (0.0-0.6); ABSOLUTE LYMPHOCYTES (AUTO) 1.2 10^3/uL (0.5-4.7); ABSOLUTE MONOCYTES (AUTO) 0.7 10^3/uL (0.1-1.4); BASOPHILS % (AUTO) 0.5 % (0-2); EOSINOPHILS % (AUTO) 0.7 % (0-6); HEMATOCRIT 51.3 % (37.9-51.0); HEMOGLOBIN 17.7 g/dL (13.5-17.0); LYMPHOCYTES % (AUTO) 10.9 % (13-45); MEAN CORPUSCULAR HEMOGLOBIN 34.3 pg (27.0-33.4); MEAN CORPUSCULAR HGB CONC 34.5 g/dL (32.0-36.0); MEAN CORPUSCULAR VOLUME 100 fl (80-97); MONOCYTES % (AUTO) 6.3 % (3-13); PLATELET COUNT 241 10^3/uL (150-450); RED BLOOD COUNT 5.15 10^6/uL (4.35-5.55); RED CELL DISTRIBUTION WIDTH 14.7 % (11.5-14.0); SEGMENTED NEUTROPHILS % (AUTO) 81.6 % (42-78); TOTAL CELLS COUNTED % (AUTO) 100 %; WHITE BLOOD COUNT 11.1 10^3/uL (4.0-10.5)
[2019-05-26 02:44] LABS: APPEARANCE,URINE CLEAR; BILIRUBIN,URINE NEGATIVE (NEGATIVE); COLOR,URINE YELLOW; GLUCOSE, URINE NEGATIVE (NEGATIVE); KETONES,URINE NEGATIVE (NEGATIVE); LEUKOCYTE ESTERASE,URINE NEGATIVE (NEGATIVE); NITRITE,URINE NEGATIVE (NEGATIVE); PROTEIN,URINE NEGATIVE (NEGATIVE); URINE SPECIFIC GRAVITY 1.011; UROBILINOGEN,URINE NEGATIVE mg/dL (<2.0)
[2019-05-26 02:51] LABS: ALANINE AMINOTRANSFERASE 28 U/L (21-72); ALBUMIN 4.5 g/dL (3.5-5.0); ALKALINE PHOSPHATASE 133 U/L (38-126); ANION GAP 11 (5-19); ASPARTATE AMINO TRANSFERASE 26 U/L (17-59); BILIRUBIN,DIRECT 0.2 mg/dL (0.0-0.4); BILIRUBIN,TOTAL 1.1 mg/dL (0.2-1.3); BLOOD UREA NITROGEN 7 mg/dL (7-20); CALCIUM 9.5 mg/dL (8.4-10.2); CARBON DIOXIDE 25 mmol/L (22-30); CHLORIDE 102 mmol/L (98-107); GLUCOSE 101 mg/dL (75-110); POTASSIUM 4.4 mmol/L (3.6-5.0); SODIUM 137.8 mmol/L (137-145); TOTAL PROTEIN 7.4 g/dL (6.3-8.2)
== END 2019-05-26 04:10 | disposition left against medical advice (07) ==
LOC: ER 00:19
DX: Z53.21 Procedure and treatment not carried out due to patient leaving prior to being seen by health care provider (principal); R10.9 Unspecified abdominal pain; Z87.820 Personal history of traumatic brain injury
CPT/HCPCS: 99281; 96372; 36415; 85025; 80053; 81001; S0119; J1885

== ENCOUNTER 2020-03-23 22:10 | Emergency (ER) | payer OTHER ==
[2020-03-23] MEDS ORDERED: VALPROATE SODIUM INJ/PF 500 MG/5 ML SDV IV ONE (22:55)
[2020-03-23 22:59] LABS: ABSOLUTE BASOPHILS # (AUTO) 0.1 10^3/uL (0.0-0.2); ABSOLUTE EOSINOPHILS # (AUTO) 0.2 10^3/uL (0.0-0.6); ABSOLUTE LYMPHOCYTES (AUTO) 3.2 10^3/uL (0.5-4.7); ABSOLUTE MONOCYTES (AUTO) 0.6 10^3/uL (0.1-1.4); ABSOLUTE NEUT (AUTO) 5.5 10^3/uL (1.7-8.2); BASOPHILS % (AUTO) 0.7 % (0-2); EOSINOPHILS % (AUTO) 2.6 % (0-6); HEMATOCRIT 48.9 % (37.9-51.0); HEMOGLOBIN 16.9 g/dL (13.5-17.0); LYMPHOCYTES % (AUTO) 33.4 % (13-45); MEAN CORPUSCULAR HEMOGLOBIN 33.4 pg (27.0-33.4); MEAN CORPUSCULAR HGB CONC 34.5 g/dL (32.0-36.0); MEAN CORPUSCULAR VOLUME 97 fl (80-97); MONOCYTES % (AUTO) 5.8 % (3-13); PLATELET COUNT 248 10^3/uL (150-450); RED BLOOD COUNT 5.04 10^6/uL (4.35-5.55); RED CELL DISTRIBUTION WIDTH 14.7 % (11.5-14.0); SEGMENTED NEUTROPHILS % (AUTO) 57.5 % (42-78); TOTAL CELLS COUNTED % (AUTO) 100 %; WHITE BLOOD COUNT 9.5 10^3/uL (4.0-10.5)
--- NOTE | 2020-03-23 23:01 | RADIOLOGY REPORT (SQ) ---
EXAM DESCRIPTION: CT HEAD WITHOUT IV CONTRAST COMPLETED DATE/TME: 03/23/2020 00:00 CLINICAL HISTORY: 34 years, Male, seizure, hit head COMPARISON: None. EXAM DESCRIPTION: CLINICAL HISTORY: seizure, hit head COMPARISON: None Available TECHNIQUE: Contiguous axial CT images of the head were obtained. Coronal and sagittal reconstructions were created from the axial data. This exam was performed according to our departmental dose-optimization program, which includes automated exposure control, adjustment of the mA and/or kV according to patient size and/or use of iterative reconstruction technique. FINDINGS: There is no evidence of acute mass, mass effect, midline shift or hemorrhage. The ventricles and extra-axial CSF spaces are unremarkable. The brain parenchyma appears normal for the patient's age. No acute abnormalities of the bones is seen. IMPRESSION: No acute intracranial abnormality.
--- NOTE | 2020-03-23 23:03 | ER Document Report ---
ED General - General Chief Complaint: Seizure Stated Complaint: POSSIBLE SEIZURE Time Seen by Provider: 03/23/20 22:30 Primary Care Provider: LIONEL RODRIGUEZ [Primary Care Provider] - Follow up as needed TRAVEL OUTSIDE OF THE [place] IN LAST 30 DAYS: No - HPI Notes: Patient is a 34-year-old male with a history of seizures secondary to TBI who presents to the emergency department for evaluation after a seizure. Evidently he was on the second floor, visiting his son. He had a seizure that was witnessed by staff there. He has no memory of the event. The patient states he used to be on Depakote. He states he stopped taking it 6 months ago because "I did not have any seizures." Patient is also on blood thinners. He has minimal pain in his head, on the left side, made worsened by bright light. He has had some mild nausea. - Related Data Allergies/Adverse Reactions: No Known Allergies Allergy (Verified 05/26/19 11:31) Home Medications: Apixaban 5mg twice daily Past Medical History - General Information source: Patient - Social History Smoking Status: Former Smoker Frequency of alcohol use: Social Drug Abuse: None Family History: Reviewed & Not Pertinent Patient has homicidal ideation: No - Past Medical History Cardiac Medical History: Reports: Hx Pulmonary Embolism Denies: Hx Atrial Fibrillation, Hx Congestive Heart Failure, Hx Coronary Art roxie Disease, Hx DVT, Hx Heart Attack, Hx Hypercholesterolemia, Hx Hypertension, Hx Heart Murmur Pulmonary Medical History: Denies: Hx Asthma, Hx COPD, Hx Intubation, Hx Sleep Apnea, Hx Tuberculosis Neurological Medical History: Reports: Hx Migraine, Hx Seizures. Denies: Hx Cerebrovascular Accident Endocrine Medical History: Denies: Hx Diabetes Mellitus Type 1, Hx Diabetes Mellitus Type 2, Hx Hyperthyroidism, Hx Hypothyroidism Renal/ Medical History: Denies: Hx Kidney Stones, Hx Peritoneal Dialysis GI Medical History: Denies: Hx Cirrhosis, Hx Gastritis, Hx Gastroesophageal Reflux Disease, Hx Hepatitis, Hx Liver Failure, Hx Pancreatitis, Hx Ulcer Psychiatric Medical History: Reports: Hx Anxiety, Hx Depression, Hx Post Traumatic Stress Disorder Traumatic Medical History: Reports: Hx Traumatic Brain Injury Infectious Medical History: Denies: Hx Hepatitis Past Surgical History: Reports: Hx Orthopedic Surgery - left shoulder - Immunizations Immunizations up to date: Yes Review of Systems - Review of Systems EENT: See HPI Neurological/Psychological: See HPI -: Yes All other systems reviewed and negative Physical Exam - Vital signs Vitals: Temp Pulse Resp BP Pulse Ox 97.8 F 81 20 121/70 97 03/23/20 22:11 03/23/20 22:11 03/23/20 22:11 03/23/20 22:11 03/23/20 22:11 - Notes Notes: This is a 34-year-old male who appears his stated age. Vital signs reviewed, please refer to chart. Head is normocephalic. He has a 2 cm red area on the parieto-occipital scalp, left side, consistent with a contusion. Pupils equal round, reactive to light. Nares are patent. Oral mucosa is moist. Bite trauma and contusion noted to the entire periphery of the anterior tongue without active bleeding or significant laceration. Uvula is midline. Neck is supple without meningismus. Heart is regular rate and rhythm. Lungs are clear to auscultation bilaterally. Abdomen is soft, nontender, normoactive bowel sounds throughout. Extremities without cyanosis, clubbing. Posterior calves are nontender. Peripheral pulses are equal. Skin is warm and dry. Patient is awake, alert, oriented to person and place, disoriented to time. Cranial nerves II - XII are grossly intact without focal neurological deficits. Strength is plus 5 out of 5 bilateral upper and lower extremities. Sensation is intact. Reflexes symmetrical. Intact [id number], rapid alternating movements, [id number]. Course - Re-evaluation Re-evalutation: 03/23/20 23:03 Patient is a 34-year-old male who presents to the emergency department for evaluation after a seizure. He had a head trauma, is on Eliquis. CT scan of the head was ordered. Laboratory investigations ordered. Patient has been on Depakote in the past. We will go and give him some IV valproic acid. He is currently stable, but intermittently confused. Seizure precautions were placed. Laboratory investigations are pending. We will continue to monitor. 03/24/20 00:51 Patient's postictal period has resolved. He is awake and alert, oriented. Awaiting urine drug screen, but otherwise labs are unremarkable. Will restart patient on the Depakote dose that he had been taking in the past. The patient was verbally told he is absolutely forbidden to drive until cleared by neurology. He voiced understanding. Will likely discharge patient after final results. - Vital Signs Vital signs: Temp Pulse Resp BP Pulse Ox 97.7 F 73 16 123/75 100 03/24/20 00:31 03/24/20 00:31 03/24/20 00:31 03/24/20 00:31 03/24/20 00:31 - Laboratory Result Diagrams: 03/23/20 22:45 03/23/20 22:45 Laboratory results interpreted by me: 03/23/20 03/23/20 03/24/20 22:45 22:45 00:50 RDW 14.7 H Glucose 116 H Magnesium 2.4 H Urine Protein 30 H - Diagnostic Test Radiology reviewed: Reports reviewed Radiology results interpreted by me: 03/24/20 01:[address] 03/23/20 00:00 IMPRESSION: No acute intracranial abnormality. Discharge - Discharge Clinical Impression: Seizure, Noncompliance with medication regimen Condition: Stable Disposition: HOME, SELF-CARE Instructions: Seizure, Known Epileptic ([facility]) Additional Instructions: You are absolutely not to drive until cleared by neurology. Please restart taking your seizure medication as prescribed. Follow-up with neurology next week. If you develop worsening or new concerning symptoms of any sort, please return immediately to the emergency department for reevaluation. Prescriptions: Divalproex Sodium [Depakote ER] 1,500 mg PO QHS #30 tab Referrals: [facility] [Primary Care Provider] - Follow up as needed
[2020-03-23 23:11] LABS: ALBUMIN 4.9 g/dL (3.5-5.0); ALKALINE PHOSPHATASE 86 U/L (38-126); ANION GAP 13 (5-19); ASPARTATE AMINO TRANSFERASE 28 U/L (17-59); BILIRUBIN,TOTAL 0.3 mg/dL (0.2-1.3); BLOOD UREA NITROGEN 11 mg/dL (7-20); CALCIUM 9.9 mg/dL (8.4-10.2); CARBON DIOXIDE 23 mmol/L (22-30); CHLORIDE 101 mmol/L (98-107); GLUCOSE 116 mg/dL (75-110); POTASSIUM 3.9 mmol/L (3.6-5.0); TOTAL PROTEIN 7.7 g/dL (6.3-8.2)
[2020-03-23 23:13] LABS: ALCOHOL < 10 mg/dL (NONE DETECTED)
[2020-03-24 01:34] LABS: APPEARANCE,URINE CLEAR; BILIRUBIN,URINE NEGATIVE (NEGATIVE); COLOR,URINE YELLOW; GLUCOSE, URINE NEGATIVE (NEGATIVE); KETONES,URINE NEGATIVE (NEGATIVE); LEUKOCYTE ESTERASE,URINE NEGATIVE (NEGATIVE); NITRITE,URINE NEGATIVE (NEGATIVE); PROTEIN,URINE 30 mg/dL (NEGATIVE); URINE SPECIFIC GRAVITY 1.015; UROBILINOGEN,URINE NEGATIVE mg/dL (<2.0)
[2020-03-24 01:49] LABS: URINE AMPHETAMINES SCREEN NEGATIVE; URINE BARBITURATES SCREEN NEGATIVE; URINE COCAINE SCREEN NEGATIVE; URINE METHADONE SCREEN NEGATIVE; URINE PHENCYCLIDINE SCREEN NEGATIVE
[2020-03-24 01:51] LABS: URINE BENZODIAZEPINES SCREEN UNCONFIRMED POSITIVE; URINE MARIJUANA (THC) SCREEN UNCONFIRMED POSITIVE
[2020-03-24 02:12] VITALS: BP 117/74
== END 2020-03-24 02:11 | disposition home or self-care (01) ==
LOC: ER 22:10
DX: G40.909 Epilepsy, unspecified, not intractable, without status epilepticus (principal); Z91.14 Patient's other noncompliance with medication regimen; Z86.711 Personal history of pulmonary embolism; Z87.820 Personal history of traumatic brain injury
CPT/HCPCS: 99284; 96365; 36415; 80307 ×2; 83735; 85025; 80053; 81001; 70450; J3490